=== PATIENT | male | born 1970 | race American Indian/Alaskan Native ===

== ENCOUNTER 2017-09-29 08:32 | Emergency (ER) | payer SELFPAY ==
[2017-09-29 08:46] VITALS: BP 125/73
[2017-09-29] MEDS ORDERED: MOTRIN PO ONE (09:02)
--- NOTE | 2017-09-29 09:59 | Emergency Department Report ---
ED Lower Extremity HPI - General Chief Complaint: Extremity Injury, Lower Stated Complaint: LEFT KNEE SWOLLEN Time Seen by Provider: 09/29/17 08:57 Source: patient Mode of arrival: Ambulatory Limitations: No Limitations - History of Present Illness Initial Comments: This is a 47-year-old male nontoxic, well nourished in appearance, no acute signs of distress presents to the ED with c/o of left knee pain 3 days. Patient stated had a total knee replacement in 1997. Patient denies any other trauma. Patient denies any numbness, tingling, fever, chills, nausea, vomiting , chest pain, shortness of breath, headache, stiff neck. Patient denies any joint swelling or joint redness. Patient denies decreased range of motion. Patient stated has decreased gait due to pain. Patient denies any allergies or significant past medical history. MD Complaint: knee injury -: days(s) (3) Injury: Knee: Left Severity: mild Severity scale (0 -10): 8 Improves With: immobilization Worsens With: movement Associated Symptoms: swelling, ambulatory. denies: snap/pop sensation, numbness , tingling, unable to bear weight, able to partially bear weight - Related Data Previous Rx's Medication Instructions Recorded Last Taken Type Amoxicillin/K Clav Tab [Augmentin 1 tab PO Q12HR #10 tab 05/13/15 Unknown Rx 875 mg] Ibuprofen [Motrin 800 MG tab] 800 mg PO Q8HR PRN #30 tablet 05/13/15 Unknown Rx Cephalexin [Keflex] 500 mg PO Q6HR #40 capsule 08/25/15 Unknown Rx Triamcinolone 0.1% [Kenalog 0.1% 1 applic TP BID #1 tube 08/25/15 Unknown Rx CREAM] Clindamycin [Clindamycin CAP] 300 mg PO Q8H #21 cap 09/29/17 Unknown Rx Ibuprofen [Motrin] 600 mg PO Q8H PRN #30 tablet 09/29/17 Unknown Rx Allergies Allergy/AdvReac Type Severity Reaction Status Date / Time No Known Allergies Allergy Verified 05/13/15 05:51 ED Review of Systems ROS: Stated complaint: LEFT KNEE SWOLLEN Other details as noted in HPI Constitutional: denies: chills, fever Eyes: denies: eye pain, eye discharge, vision change ENT: denies: ear pain, throat pain Respiratory: denies: cough, shortness of breath, wheezing Cardiovascular: denies: chest pain, palpitations Endocrine: no symptoms reported Gastrointestinal: denies: abdominal pain, nausea, diarrhea Genitourinary: denies: urgency, dysuria Musculoskeletal: arthralgia. denies: back pain, joint swelling Skin: denies: rash, lesions Neurological: denies: headache, weakness, paresthesias Psychiatric: denies: anxiety, depression Hematological/Lymphatic: denies: easy bleeding, easy bruising ED Past Medical Hx - Past Medical History Previous Medical History?: No - Surgical History Past Surgical History?: Yes Additional Surgical History: left knee reconstruction - Social History Smoking Status: Never Smoker Substance Use Type: Non Opiate Pain - Medications Home Medications: Home Medications Medication Instructions Recorded Confirmed Last Taken Type Amoxicillin/K Clav Tab [Augmentin 1 tab PO Q12HR #10 tab 05/13/15 Unknown Rx 875 mg] Ibuprofen [Motrin 800 MG tab] 800 mg PO Q8HR PRN #30 tablet 05/13/15 Unknown Rx Cephalexin [Keflex] 500 mg PO Q6HR #40 capsule 08/25/15 Unknown Rx Triamcinolone 0.1% [Kenalog 0.1% 1 applic TP BID #1 tube 08/25/15 Unknown Rx CREAM] Clindamycin [Clindamycin CAP] 300 mg PO Q8H #21 cap 09/29/17 Unknown Rx Ibuprofen [Motrin] 600 mg PO Q8H PRN #30 tablet 09/29/17 Unknown Rx ED Physical Exam - General Limitations: No Limitations General appearance: alert, in no apparent distress - Head Head exam: Present: atraumatic, normocephalic - Eye Eye exam: Present: normal appearance Pupils: Present: normal accommodation - ENT ENT exam: Present: normal exam, mucous membranes moist - Neck Neck exam: Present: normal inspection, full ROM. Absent: tenderness, meningismus, lymphadenopathy - Respiratory Respiratory exam: Present: normal lung sounds bilaterally. Absent: respiratory distress - Cardiovascular Cardiovascular Exam: Present: regular rate, normal rhythm. Absent: systolic murmur, diastolic murmur, rubs, gallop - GI/Abdominal GI/Abdominal exam: Present: soft, normal bowel sounds - Rectal Rectal exam: Present: deferred - Extremities Exam Extremities exam: Present: normal inspection, full ROM, tenderness, normal capillary refill. Absent: joint swelling - Expanded Lower Extremity Exam Left Hip exam: Present: normal inspection, full ROM. Absent: tenderness, swelling Upper Leg exam: Present: normal inspection, full ROM. Absent: tenderness, swelling Knee exam: Present: normal inspection, full ROM, tenderness, swelling, full knee extension. Absent: abrasion, laceration, ecchymosis, deformity, crepidus, dislocation, erythema, effusion, pain w/ pronation/supination, posterior draw sign, pain/laxity with valgus, pain/laxity with varus Lower Leg exam: Present: normal inspection, full ROM. Absent: tenderness, swelling Ankle exam: Present: normal inspection, full ROM. Absent: tenderness, swelling Foot/Toe exam: Present: normal inspection, full ROM. Absent: tenderness, swelling Neuro vascular tendon exam: Present: no vascular compromise. Absent: pulse deficit, abnormal cap refill, motor deficit, sensory deficit, tendon deficit, extremity cold to touch, pallor, abnormal 2-point discrimination, decreased fine /light touch, foot drop, peroneal nerve deficit, significant pain with passive ROM of distal joint Gait: Positive: observed and normal - Back Exam Back exam: Present: normal inspection, full ROM - Neurological Exam Neurological exam: Present: alert, oriented X3, normal gait - Psychiatric Psychiatric exam: Present: normal affect, normal mood - Skin Skin exam: Present: warm, dry, intact, normal color. Absent: rash ED Course Vital Signs 09/29/17 08:43 Temperature 97.8 F Pulse Rate 71 Respiratory 18 Rate Blood Pressure 125/73 O2 Sat by Pulse 99 Oximetry - Reevaluation(s) Reevaluation #1: 09/29/17 10:01 Patient is speaking in full sentences with no signs of distress noted. ED Lower Extremity MDM - Medical Decision Making This is a 47-year-old female that presents with left knee strain. Patient is stable and was examined by me. I referred patient to an orthopedic doctor for further evaluation for possible MRI. X-ray has been obtained and dictated by the radiologist. Patient is notified of the x-ray report with noted by the patient. Patient does have normal gait with no tenderness and no joint swelling. No ecchymosis. no joint redness or swelling. Not warm to touch. No signs of cellulites present. Patient is requested to be treated with "antibiotics" even though there is no signs of cellulitits. Patient was educated on cellulitiis and joint infections but patient still requested to be treated empirically. Patient is discharge with clindamycin. Patient was instructed to RICE therapy. Patient received Motrin for pain. Patient is discharged with Motrin. At time of discharge, the patient does not seem toxic or ill in appearance. No acute signs of distress noted. Patient agrees to discharge treatment plan of care. No further questions noted by the patient. Critical care attestation.: If time is entered above; I have spent that time in minutes in the direct care of this critically ill patient, excluding procedure time. ED Disposition Clinical Impression: Strain of left knee Qualifiers: Encounter type: initial encounter Qualified Code(s): S86.912A - Strain of unspecified muscle(s) and tendon(s) at lower leg level, left leg, initial encounter Disposition: TO HOME OR SELFCARE Is pt being admited?: No Does the pt Need Aspirin: No Condition: Stable Instructions: Knee Pain (ED), RICE Therapy (ED) Additional Instructions: Follow-up with a orthopedic doctor in 3-5 days or if symptoms worsen and continue return to emergency room as soon as possible. Prescriptions: Clindamycin [Clindamycin CAP] 300 mg PO Q8H #21 cap Ibuprofen [Motrin] 600 mg PO Q8H PRN #30 tablet PRN Reason: Pain Referrals: PRIMARY CAREMD [Primary Care Provider] - 3-5 Days JOHN PAUL WATTS MD [Staff Physician] - 3-[address] [facility] [place] [Outside] - 3-5 Days [facility] [Outside] - 3-5 Days Forms: Work/School Release Form(ED)
--- NOTE | 2017-09-29 10:22 | XRay Report ---
LEFT KNEE, 3 views: History: Left knee pain. No comparison. There is normal bone mineralization. Previous ACL repair changes are suspected, correlate with history. A single screw transverses the distal femoral metaphysis. A single screw transverses the proximal tibial metaphysis. Mild osteoarthritic changes are identified in the medial and lateral compartments of the left knee. No evidence for fracture, bone lesion or large osteochondral defect. Small joint effusion is suspected on the lateral image. IMPRESSION: Surgical changes, correlate with history. Mild osteoarthritic changes. Small joint effusion.
== END 2017-09-29 10:33 | disposition home or self-care (01) ==
LOC: ED 08:32
DX: S86.912A Strain of unspecified muscle(s) and tendon(s) at lower leg level, left leg, initial encounter (principal); X58.XXXA Exposure to other specified factors, initial encounter; Y93.89 Activity, other specified; Y99.8 Other external cause status; Y92.89 Other specified places as the place of occurrence of the external cause

== ENCOUNTER 2017-11-17 08:39 | Emergency (ER) | payer SELFPAY ==
[2017-11-17 09:20] VITALS: BP 119/77
[2017-11-17] MEDS ORDERED: MOTRIN ONE (09:59)
[2017-11-17] MEDS ORDERED: MOTRIN PO ONE (10:04)
--- NOTE | 2017-11-17 10:04 | Emergency Department Report ---
ED Extremity Problem HPI - General Chief complaint: Extremity Injury, Lower Stated complaint: LEFT LEG SWOLLEN Time Seen by Provider: 11/17/17 09:50 Source: patient Mode of arrival: Ambulatory Limitations: No Limitations - History of Present Illness Initial comments: Mr. Gabriel is a pleasant healthy 47-year-old male presents with left lower extremity swelling. He was seen in our ER on previous encounter for left knee swelling. He's had reconstructive surgery on the left knee in the . Since previous ER encounter he has had worsening left lower leg pain. Involving his foot. No recent travel. Denies chest pain. No shortness of breath. He has mild redness without trauma. MD Complaint: extremity pain, extremity swelling -: Gradual, week(s) (1) Location: right, lower extremity History of Same: Yes -: Yes myalgia, No associated dyspnea, No associated chest pain Radiation: none Severity scale (0 -10): 5 Quality: aching Consistency: constant Worsens with: nothing Associated Symptoms: denies other symptoms - Related Data Previous Rx's Medication Instructions Recorded Last Taken Type Amoxicillin/K Clav Tab [Augmentin 1 tab PO Q12HR #10 tab 05/13/15 Unknown Rx 875 mg] Ibuprofen [Motrin 800 MG tab] 800 mg PO Q8HR PRN #30 tablet 05/13/15 Unknown Rx Triamcinolone 0.1% [Kenalog 0.1% 1 applic TP BID #1 tube 08/25/15 Unknown Rx CREAM] cephALEXin [Keflex] 500 mg PO Q6HR #40 capsule 08/25/15 Unknown Rx Clindamycin [Clindamycin CAP] 300 mg PO Q8H #21 cap 09/29/17 Unknown Rx Ibuprofen [Motrin] 600 mg PO Q8H PRN #30 tablet 09/29/17 Unknown Rx Naproxen [Naprosyn] 500 mg PO BID 14 Days #28 tablet 11/17/17 Unknown Rx Allergies Allergy/AdvReac Type Severity Reaction Status Date / Time No Known Allergies Allergy Verified 11/17/17 10:07 ED Review of Systems ROS: Stated complaint: LEFT LEG SWOLLEN Other details as noted in HPI Comment: All other systems reviewed and negative Constitutional: denies: diaphoresis, malaise Cardiovascular: denies: chest pain ED Past Medical Hx - Past Medical History Previous Medical History?: No - Surgical History Past Surgical History?: Yes Additional Surgical History: left knee reconstruction - Social History Smoking Status: Never Smoker Substance Use Type: None - Medications Home Medications: Home Medications Medication Instructions Recorded Confirmed Last Taken Type Amoxicillin/K Clav Tab [Augmentin 1 tab PO Q12HR #10 tab 05/13/15 Unknown Rx 875 mg] Ibuprofen [Motrin 800 MG tab] 800 mg PO Q8HR PRN #30 tablet 05/13/15 Unknown Rx Triamcinolone 0.1% [Kenalog 0.1% 1 applic TP BID #1 tube 08/25/15 Unknown Rx CREAM] cephALEXin [Keflex] 500 mg PO Q6HR #40 capsule 08/25/15 Unknown Rx Clindamycin [Clindamycin CAP] 300 mg PO Q8H #21 cap 09/29/17 Unknown Rx Ibuprofen [Motrin] 600 mg PO Q8H PRN #30 tablet 09/29/17 Unknown Rx Naproxen [Naprosyn] 500 mg PO BID 14 Days #28 tablet 11/17/17 Unknown Rx ED Physical Exam - General Limitations: No Limitations General appearance: alert, in no apparent distress - Head Head exam: Present: atraumatic, normocephalic - Eye Eye exam: Present: normal appearance - ENT ENT exam: Present: mucous membranes moist - Neck Neck exam: Present: normal inspection. Absent: tenderness, meningismus - Respiratory Respiratory exam: Present: normal lung sounds bilaterally. Absent: respiratory distress, wheezes, rales, rhonchi - Cardiovascular Cardiovascular Exam: Present: regular rate, normal rhythm, normal heart sounds. Absent: systolic murmur, diastolic murmur, rubs, gallop - GI/Abdominal GI/Abdominal exam: Present: soft, normal bowel sounds. Absent: distended, guarding - Rectal Rectal exam: Present: deferred - Extremities Exam Extremities exam: Present: other (L leg with nonpitting edema and faint patches of erythema no tenderness in the knee. Left knee with surgical scar) - Back Exam Back exam: Present: normal inspection - Neurological Exam Neurological exam: Present: alert, oriented X3, normal gait - Psychiatric Psychiatric exam: Present: normal affect, normal mood - Skin Skin exam: Present: warm, dry, intact, normal color. Absent: rash ED Course Vital Signs 11/17/17 11/17/17 09:17 10:05 Temperature 97.9 F Pulse Rate 76 Respiratory 18 15 Rate Blood Pressure 119/77 O2 Sat by Pulse 98 Oximetry ED Medical Decision Making - Medical Decision Making Mr. Gabriel presents with left leg swelling and mild pain. No evidence of DVT. No evidence of Cellulitis. I suspect Walker's cyst or dependent edema due to favoring the left lower extremity. Patient likely has meniscus injury. Described naproxen. Critical care attestation.: If time is entered above; I have spent that time in minutes in the direct care of this critically ill patient, excluding procedure time. ED Disposition Clinical Impression: Left leg swelling Disposition: DC- TO HOME OR SELFCARE Is pt being admited?: No Does the pt Need Aspirin: No Condition: Stable Instructions: Leg Edema (ED) Prescriptions: Naproxen [Naprosyn] 500 mg PO BID 14 Days #28 tablet Referrals: PRIMARY CARE, [Primary Care Provider] - 3-5 Days Time of Disposition: 13:21
== END 2017-11-17 13:31 | disposition home or self-care (01) ==
LOC: ED 08:39
DX: R22.42 Localized swelling, mass and lump, left lower limb (principal)
CPT/HCPCS: 99283

== ENCOUNTER 2018-06-26 09:26 | Emergency (ER) | payer BC ==
[2018-06-26 10:35] LABS: Basophils # (Auto) 0.1 K/mm3 (0.0-0.1); Basophils % (Auto) 1.1 % (0.0-1.8); Eosinophils # (Auto) 0.1 K/mm3 (0.0-0.4); Eosinophils % (Auto) 1.1 % (0.0-4.3); Hematocrit 47.2 % (35.5-45.6); Hemoglobin 15.8 gm/dl (11.8-15.2); Lymphocytes # (Auto) 1.7 K/mm3 (1.2-5.4); Lymphocytes % (Auto) 24.8 % (13.4-35.0); Mean Corpuscular HGB Conc 34 % (32-34); Mean Corpuscular Volume 82 fl (84-94); Monocytes # (Auto) 0.6 K/mm3 (0.0-0.8); Monocytes % (Auto) 9.1 % (0.0-7.3); Platelet Count 290 K/mm3 (140-440); Red Blood Count 5.74 M/mm3 (3.65-5.03); Red Cell Distribution Width 15.4 % (13.2-15.2)
[2018-06-26 10:52] LABS: Alanine Aminotransferase 15 units/L (7-56); BUN/Creatinine Ratio 7; Blood Urea Nitrogen 7 mg/dL (9-20); Calcium 8.7 mg/dL (8.4-10.2); Hemolysis Index 9
[2018-06-26 10:55] LABS: Bilirubin,Urine NEG (Negative); Blood,Urine NEG (Negative); Color,Urine Yellow (Yellow); Protein,Urine <15 mg/dL mg/dL (Negative)
--- NOTE | 2018-06-26 13:54 | Cat Scan Report ---
PROCEDURE: CT ABDOMEN PELVIS W CON TECHNIQUE: Computerized axial tomography of the abdomen and pelvis was performed after the IV injecti on of iodinated nonionic contrast. Coronal and sagittal reconstructed imaging provided. CT DOSE LENGTH PRODUCT: 2366.8 mGy-cm. HISTORY: LLQ pain with diarrhea COMPARISONS: None currently available. FINDINGS: Abdomen: Lung bases and images of the heart are grossly unremarkable. Liver: Decreased heterogeneous attenuation may represent hepatocellular disease, fatty infiltration, or cirrhosis. No abnormal enhancement 3.5 mm low-density lesion in the right liver on series 2, image 26. 5.7 mm low-density lesion on image 47. Gallbladder, stomach, spleen, pancreas, and adrenals are unremarkable. Kidneys: Symmetrical cortical enhancement. No hydronephrosis. In the left kidney, subcentimeter hypod ensity is too small to accurately characterize but statistically probably represents a cyst. No aneurysm. No dissection. No significant atherosclerotic disease. IVC is unremarkable. There is no periaortic or retroperitoneal adenopathy or mass. Sections of the descending colon are collapsed which limits evaluation for wall thickening. Mild wall thickening of the distal half the descending colon is suspected. No significant stranding. Mild wall thickening of the sigmoid colon and rectum also suspected. Mild to moderate stool in the remainder o f the colon without air-fluid levels, wall thickening, or stranding. Terminal ileum is unremarkable. Appendix is normal. Small bowel loops are unremarkable. No obstructive pattern. No air-fluid levels. No free air. No free fluid. Mesentery is unremarkable. Pelvis: Prominent heterogeneous prostate. Bladder: Unremarkable. There is no pelvic mass or adenopathy. Inguinal regions are unremarkable. Bones: No suspicious osseous lesions on this limited examination of the skeleton. Metastatic disease better evaluated with bone scan. IMPRESSION: * Suspect mild colitis or enterocolitis of the left colon from the distal half the descending colon down to the rectum. No perforation or abscess. * Fatty liver. * Nonspecific subcentimeter right hepatic lesions. Hepatic lesions are nonspecific. Differential thuan gnosis includes cysts, hemangiomas, pseudotumors associated with fatty infiltration and also benign a nd malignant tumors. Cysts and hemangiomas favored. * Probable subcentimeter left renal cyst. This document is electronically signed by Artem Lester MD., June 26 2018 01:52:06 PM ET
--- NOTE | 2018-06-26 14:13 | Emergency Department Report ---
Vomiting/Diarrhea - HPI Chief Complaint: Abdominal Pain Stated Complaint: LOWER STOMACH PAIN Time Seen by Provider: 06/26/18 10:11 Duration: 3 Days Severity: moderate Nausea/Vomiting Severity: None Diarrhea Severity: Moderate Pain Location: LLQ Pain Severity: Mild Symptoms: Yes Watery Diarrhea, Yes Able to Tolerate Fluids, No Bloody diarrhea, No Fever, No Recent Unusual Foods, No Recent Untreated Water, No Recent use of Antibiotics, No Family w/ Similar Symptoms, No Contacts w/ Similar Symptoms, No Rash, No Hematuria, No Recent URI Symptoms ED Review of Systems ROS: Stated complaint: LOWER STOMACH PAIN Other details as noted in HPI Comment: All other systems reviewed and negative ED Past Medical Hx - Past Medical History Previous Medical History?: No - Surgical History Additional Surgical History: left knee reconstruction, hernia - Social History Smoking Status: Never Smoker Substance Use Type: None - Medications Home Medications: Home Medications Medication Instructions Recorded Confirmed Last Taken Type Amoxicillin/K Clav Tab [Augmentin 1 tab PO Q12HR #10 tab 05/13/15 Unknown Rx 875 mg] Ibuprofen [Motrin 800 MG tab] 800 mg PO Q8HR PRN #30 tablet 05/13/15 Unknown Rx Triamcinolone 0.1% [Kenalog 0.1% 1 applic TP BID #1 tube 08/25/15 Unknown Rx CREAM] cephALEXin [Keflex] 500 mg PO Q6HR #40 capsule 08/25/15 Unknown Rx Clindamycin [Clindamycin CAP] 300 mg PO Q8H #21 cap 09/29/17 Unknown Rx Ibuprofen [Motrin] 600 mg PO Q8H PRN #30 tablet 09/29/17 Unknown Rx Naproxen [Naprosyn] 500 mg PO BID 14 Days #28 tablet 11/17/17 Unknown Rx Ciprofloxacin HCl [Cipro] 500 mg PO BID #14 tablet 06/26/18 Unknown Rx Dicyclomine [Bentyl] 20 mg PO QID #10 tablet 06/26/18 Unknown Rx metroNIDAZOLE [Flagyl] 500 mg PO Q12HR #14 tab 06/26/18 Unknown Rx traMADol [Ultram] 50 mg PO Q6HR PRN #12 tablet 06/26/18 Unknown Rx Vomiting Diarrhea Exam - Exam General: Vital signs noted. No distress. Alert and acting appropriately. HEENT: Yes Moist Mucous Membranes, No Pharyngeal Erythema, No Pharyngeal Exudates, No Rhinorrhea, No Conjuctival Injection, No Frontal Tenderness, No Maxillary Tenderness Neck: No Adenopathy, No Rigidity Lungs: Yes Clear Lung Sounds, Yes Good Air Exchange, No Wheezes, No Stridor, No Cough, No Nasal Flaring, No Retractions, No Use of Accessory Muscles Heart exam: Regular: Yes, Murmur: No, Tachycardia: No Abdomen: Tenderness: Yes (LLQ, no rebound ), Peritoneal Signs: No, Distention: No, Hyperactive Bowel sounds: No Skin exam: Rash: No, Edema: No, Normal turgor: Yes Neurologic: Alert and oriented, no deficits. Musculoskeletal: Unremarkable. ED Course Vital Signs 06/26/18 09:29 Temperature 97.8 F Pulse Rate 87 Respiratory 16 Rate Blood Pressure 116/76 O2 Sat by Pulse 100 Oximetry ED Medical Decision Making - Lab Data Result diagrams: 06/26/18 10:20 06/26/18 10:20 Lab Results 06/26/18 06/26/18 06/26/18 Range/Units 10:20 10:20 10:47 WBC 6.7 (4.5-11.0) K/mm3 RBC 5.74 H (3.65-5.03) M/mm3 Hgb 15.8 H (11.8-15.2) gm/dl Hct 47.2 H (35.5-45.6) % MCV 82 L (84-94) fl MCH 28 (28-32) pg MCHC 34 (32-34) % RDW 15.4 H (13.2-15.2) % Plt Count 290 (140-440) K/mm3 Lymph % (Auto) 24.8 (13.4-35.0) % Trigg % (Auto) 9.1 H (0.0-7.3) % Eos % (Auto) 1.1 (0.0-4.3) % Baso % (Auto) 1.1 (0.0-1.8) % Lymph # 1.7 (1.2-5.4) K/mm3 Trigg # 0.6 (0.0-0.8) K/mm3 Eos # 0.1 (0.0-0.4) K/mm3 Baso # 0.1 (0.0-0.1) K/mm3 Seg Neutrophils % 63.9 (40.0-70.0) % Seg Neutrophils # 4.3 (1.8-7.7) K/mm3 Sodium 140 (137-145) mmol/L Potassium 4.2 (3.6-5.0) mmol/L Chloride 101.0 (98-107) mmol/L Carbon Dioxide 29 (22-30) mmol/L Anion Gap 14 mmol/L BUN 7 L (9-20) mg/dL Creatinine 1.0 (0.8-1.5) mg/dL Estimated GFR > 60 ml/min BUN/Creatinine Ratio 7 % Glucose 100 (75-100) mg/dL Calcium 8.7 (8.4-10.2) mg/dL Total Bilirubin 0.60 (0.1-1.2) mg/dL AST 16 (5-40) units/L ALT 15 (7-56) units/L Alkaline Phosphatase 44 (35-129) units/L Total Protein 6.8 (6.3-8.2) g/dL Albumin 4.0 (3.9-5) g/dL Albumin/Globulin Ratio 1.4 % Urine Color Yellow (Yellow) Urine Turbidity Clear (Clear) Urine pH 5.0 (5.0-7.0) Ur Specific [place] 1.024 (1.003-1.030) Urine Protein <15 mg/dl (Negative) mg/dL Urine Glucose (UA) Neg (Negative) mg/dL Urine Ketones Neg (Negative) mg/dL Urine Blood Neg (Negative) Urine Nitrite Neg (Negative) Urine Bilirubin Neg (Negative) Urine Urobilinogen 2.0 (<2.0) mg/dL Ur Leukocyte Esterase Neg (Negative) Urine WBC (Auto) 1.0 (0.0-6.0) /HPF Urine RBC (Auto) 2.0 (0.0-6.0) /HPF - Radiology Data [facility] [address] [place] [address] Cat Scan Report Signed Patient: KEEGAN SÁNCHEZ MR#: [id number] 5 : 1970 Acct:[id number] Age/Sex: 48 / M ADM Date: 06/26/18 Loc: ED Attending Dr: Ordering Physician: ISABELLA WALTER MD Date of Service: 06/26/18 Procedure(s): CT abdomen pelvis w con Accession Number(s): [id number] cc: ISABELLA WALTER MD PROCEDURE: CT ABDOMEN PELVIS W CON TECHNIQUE: Computerized axial tomography of the abdomen and pelvis was performed after the IV injection of iodinated nonionic contrast. Coronal and sagittal reconstructed imaging provided. CT DOSE LENGTH PRODUCT: 2366.8 mGy-cm. HISTORY: LLQ pain with diarrhea COMPARISONS: None currently available. FINDINGS: Abdomen: Lung bases and images of the heart are grossly unremarkable. Liver: Decreased heterogeneous attenuation may represent hepatocellular disease, fatty infiltration, or cirrhosis. No abnormal enhancement 3.5 mm low-density lesion in the right liver on series 2, image 26. 5.7 mm low-density lesion on image 47. Gallbladder, stomach, spleen, pancreas, and adrenals are unremarkable. Kidneys: Symmetrical cortical enhancement. No hydronephrosis. In the left kidney, subcentimeter hypodensity is too small to accurately characterize but statistically probably represents a cyst. No aneurysm. No dissection. No significant atherosclerotic disease. IVC is unremarkable. There is no periaortic or retroperitoneal adenopathy or mass. Sections of the descending colon are collapsed which limits evaluation for wall thickening. Mild wall thickening of the distal half the descending colon is suspected. No significant stranding. Mild wall thickening of the sigmoid colon and rectum also suspected. Mild to moderate stool in the remainder of the colon without air-fluid levels, wall thickening, or stranding. Terminal ileum is unremarkable. Appendix is normal. Small bowel loops are unremarkable. No obstructive pattern. No air-fluid levels. No free air. No free fluid. Mesentery is unremarkable. Pelvis: Prominent heterogeneous prostate. Bladder: Unremarkable. There is no pelvic mass or adenopathy. Inguinal regions are unremarkable. Bones: No suspicious osseous lesions on this limited examination of the skeleton. Metastatic disease better evaluated with bone scan. IMPRESSION: * Suspect mild colitis or enterocolitis of the left colon from the distal half the descending colon down to the rectum. No perforation or abscess. * Fatty liver. * Nonspecific subcentimeter right hepatic lesions. Hepatic lesions are nonspecific. Differential diagnosis includes cysts, hemangiomas, pseudotumors associated with fatty infiltration and also lynne ign and malignant tumors. Cysts and hemangiomas favored. * Probable subcentimeter left renal cyst. This document is electronically signed by Artem Marinelli MD., June 26 2018 01:52:06 PM ET Transcribed By: TYM Dictated By: ARTEM MARINELLI MD Electronically Authenticated By: ARTEM MARINELLI MD Signed Date/Time: 06/26/18 1354 DD/ 1328 TD/TT: 06/26/18 1328 - Medical Decision Making Pt with a mild colitis. Pain was controlled. Patient is a good candidate for outpatient therapy. Patient started on Cipro and Flagyl be discharged home. Critical care attestation.: If time is entered above; I have spent that time in minutes in the direct care of this critically ill patient, excluding procedure time. ED Disposition Clinical Impression: Colitis Disposition: DC-01 TO HOME OR SELFCARE Is pt being admited?: No Does the pt Need Aspirin: No Condition: Stable Instructions: Infectious Colitis (ED) Referrals: GRISEL PATINO MD [Staff Physician] - 3-5 Days Time of Disposition: 14:12
[2018-06-26 14:30] VITALS: BP 123/78
== END 2018-06-26 14:16 | disposition home or self-care (01) ==
LOC: ED 09:26
DX: K52.9 Noninfective gastroenteritis and colitis, unspecified (principal); Z79.899 Other long term (current) drug therapy
CPT/HCPCS: 36415; 74177; 80053; 81001; 85025; 99284; Q9967

== ENCOUNTER 2018-09-01 17:13 | Emergency (ER) | payer BC, OTHER ==
--- NOTE | 2018-09-01 17:44 | Emergency Department Report ---
Chief Complaint: Extremity Injury, Lower Stated Complaint: LT KNEE PAIN Time Seen by Provider: 09/01/18 17:42 - HPI History of Present Illness: This is a 48 y.o. male with left knee pain for 4 days. Patient states he injured knee 1997. He was working out and felt a pop. - Exam Vital Signs: Vital Signs 09/01/18 17:42 Temperature 97.8 F Pulse Rate 74 Respiratory 18 Rate Blood Pressure 130/51 O2 Sat by Pulse 97 Oximetry MSE screening note: Focused history and physical exam performed. Due to findings the following was ordered: This initial assessment/diagnostic orders/clinical plan/treatment(s) is/are subject to change based on patient's health status, clinical progression and re- assessment by fellow clinical providers in the ED. Further treatment and workup at subsequent clinical providers discretion. Patient/guardians urged not to elope from the ED as their condition may be serious if not clinically assessed and managed. Initial orders include: XR left knee. ED Disposition for MSE Condition: Stable
--- NOTE | 2018-09-01 18:51 | XRay Report ---
PROCEDURE: XR KNEE 3V LT TECHNIQUE: AP, sunrise, and lateral portable views of the left knee HISTORY: Left knee pain and swelling anterior COMPARISONS: X-ray left knee 09/29/2017 . FINDINGS: Transverse orthopedic screws are noted in the distal femur and proximal tibia, unchanged. No acute fracture or dislocation is seen. The soft tissues are unremarkable with no evidence for supr apatellar joint effusion. Joint spaces demonstrate mild narrowing of the medial joint compartment. The bony mineralization is n ormal. IMPRESSION: No acute abnormality of the left knee. This document is electronically signed by Radhika Shields MD., September 01 2018 06:48:47 PM ET
[2018-09-01 21:12] VITALS: BP 118/78
[2018-09-01] MEDS ORDERED: IBUPROFEN PO ONE (21:36)
--- NOTE | 2018-09-01 21:41 | Emergency Department Report ---
ED Lower Extremity HPI - General Chief Complaint: Extremity Injury, Lower Stated Complaint: LT KNEE PAIN Time Seen by Provider: 09/01/18 17:42 Source: patient Mode of arrival: Ambulatory Limitations: No Limitations - History of Present Illness Initial Comments: Mr. Gabriel is a very pleasant 48-year-old male whose has swelling in medial left knee pain for the past 3-4 days. No trauma. +anterior cruciate ligament reconstructive surgery 20 years ago after a basketball injury. Recently he has started a new regimen on the stationary bicycle for exercise. MD Complaint: knee injury -: Gradual, days(s) (4) Injury: Knee: Left Severity: mild, moderate Improves With: nothing Worsens With: movement Associated Symptoms: swelling. denies: snap/pop sensation - Related Data Previous Rx's Medication Instructions Recorded Last Taken Type Amoxicillin/K Clav Tab [Augmentin 1 tab PO Q12HR #10 tab 05/13/15 Unknown Rx 875 mg] Ibuprofen [Motrin 800 MG tab] 800 mg PO Q8HR PRN #30 tablet 05/13/15 Unknown Rx Triamcinolone 0.1% [Kenalog 0.1% 1 applic TP BID #1 tube 08/25/15 Unknown Rx CREAM] cephALEXin [Keflex] 500 mg PO Q6HR #40 capsule 08/25/15 Unknown Rx Clindamycin [Clindamycin CAP] 300 mg PO Q8H #21 cap 09/29/17 Unknown Rx Ibuprofen [Motrin] 600 mg PO Q8H PRN #30 tablet 09/29/17 Unknown Rx Naproxen [Naprosyn] 500 mg PO BID 14 Days #28 tablet 11/17/17 Unknown Rx Ciprofloxacin HCl [Cipro] 500 mg PO BID #14 tablet 06/26/18 Unknown Rx Dicyclomine [Bentyl] 20 mg PO QID #10 tablet 06/26/18 Unknown Rx metroNIDAZOLE [Flagyl] 500 mg PO Q12HR #14 tab 06/26/18 Unknown Rx traMADol [Ultram] 50 mg PO Q6HR PRN #12 tablet 06/26/18 Unknown Rx Ibuprofen [Motrin 800 MG tab] 800 mg PO TID 5 Days #15 tablet 09/01/18 Unknown Rx Allergies Allergy/AdvReac Type Severity Reaction Status Date / Time No Known Allergies Allergy Verified 09/01/18 17:14 ED Review of Systems ROS: Stated complaint: LT KNEE PAIN Other details as noted in HPI Constitutional: denies: fever, malaise Musculoskeletal: joint swelling, arthralgia Neurological: denies: numbness, paresthesias, confusion ED Past Medical Hx - Past Medical History Previous Medical History?: No - Surgical History Additional Surgical History: left knee reconstruction, hernia - Social History Smoking Status: Never Smoker Substance Use Type: None - Medications Home Medications: Home Medications Medication Instructions Recorded Confirmed Last Taken Type Amoxicillin/K Clav Tab [Augmentin 1 tab PO Q12HR #10 tab 05/13/15 Unknown Rx 875 mg] Ibuprofen [Motrin 800 MG tab] 800 mg PO Q8HR PRN #30 tablet 05/13/15 Unknown Rx Triamcinolone 0.1% [Kenalog 0.1% 1 applic TP BID #1 tube 08/25/15 Unknown Rx CREAM] cephALEXin [Keflex] 500 mg PO Q6HR #40 capsule 08/25/15 Unknown Rx Clindamycin [Clindamycin CAP] 300 mg PO Q8H #21 cap 09/29/17 Unknown Rx Ibuprofen [Motrin] 600 mg PO Q8H PRN #30 tablet 09/29/17 Unknown Rx Naproxen [Naprosyn] 500 mg PO BID 14 Days #28 tablet 11/17/17 Unknown Rx Ciprofloxacin HCl [Cipro] 500 mg PO BID #14 tablet 06/26/18 Unknown Rx Dicyclomine [Bentyl] 20 mg PO QID #10 tablet 06/26/18 Unknown Rx metroNIDAZOLE [Flagyl] 500 mg PO Q12HR #14 tab 06/26/18 Unknown Rx traMADol [Ultram] 50 mg PO Q6HR PRN #12 tablet 06/26/18 Unknown Rx Ibuprofen [Motrin 800 MG tab] 800 mg PO TID 5 Days #15 tablet 09/01/18 Unknown Rx ED Physical Exam - General Limitations: No Limitations General appearance: alert, in no apparent distress - Head Head exam: Present: atraumatic, normocephalic - Respiratory Respiratory exam: Present: normal lung sounds bilaterally. Absent: respiratory distress, wheezes, rales, rhonchi - Expanded Lower Extremity Exam Left Knee exam: Present: normal inspection (large vertical surgical scar central left knee), full ROM, tenderness. Absent: swelling, abrasion, laceration, ecchymosis, deformity, crepidus, dislocation, erythema, effusion ED Course Vital Signs 06/04/19 06/04/19 17:42 21:11 Temperature 97.8 F 97.8 F Pulse Rate 74 72 Respiratory 18 16 Rate Blood Pressure 130/51 Blood Pressure 118/78 [Left] O2 Sat by Pulse 97 98 Oximetry ED Lower Extremity MDM - Radiology Data Radiology results: report reviewed Left knee radiographs reported normal with negative findings according to radiology report - Medical Decision Making Mr. his symptoms with medial knee pain status post anterior cruciate ligament reconstruction 3 years ago. Suspect medial meniscus injury. Strongly recommended orthopedic surgeon. Left Nasir wrap was applied to the affected ext remity under my supervision. After application the extremity was neurovascularly intact with acceptable alignment. prescribed ibuprofen 800 mg tablets. Critical care attestation.: If time is entered above; I have spent that time in minutes in the direct care of this critically ill patient, excluding procedure time. ED Disposition Clinical Impression: Left knee pain, Derangement of medial meniscus due to injury Disposition: DC-01 TO HOME OR SELFCARE Is pt being admited?: No Does the pt Need Aspirin: No Condition: Stable Instructions: Knee Pain (ED), Knee Effusion (ED) Prescriptions: Ibuprofen [Motrin 800 MG tab] 800 mg PO TID 5 Days #15 tablet Referrals: JOHN PAUL WATTS MD [Staff Physician] - 3-5 Days
== END 2018-09-01 21:55 | disposition home or self-care (01) ==
LOC: ED 17:13
DX: M23.304 Other meniscus derangements, unspecified medial meniscus, left knee (principal); M25.562 Pain in left knee

== ENCOUNTER 2018-12-01 09:37 | Emergency (ER) | payer SELFPAY ==
[2018-12-01] MEDS ORDERED: TORADOL IM ONE (10:00)
--- NOTE | 2018-12-01 10:24 | Emergency Department Report ---
ED Extremity Problem HPI - General Chief complaint: Extremity Problem,Nontraumatic Stated complaint: RT POST LEG PAIN Time Seen by Provider: 12/01/18 09:55 Source: patient Mode of arrival: Ambulatory Limitations: No Limitations - History of Present Illness Initial comments: Patient is a 48-year-old male who presents to emergency room with complaints of right calf pain and swelling that began 2 days ago. He states it feels like a cramping/spasming feeling. 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 Denies any fall or injury. Denies ever having a pain like this before. Patient denies any recent travel, recent surgery, recent immobilization. Denies any personal or family history of DVT/PE. pt denies any CP, SOB, hemoptysis. He denies any past medical history or allergies to medications. pt is a nonsmoker. - Related Data Previous Rx's Medication Instructions Recorded Last Taken Type Amoxicillin/K Clav Tab [Augmentin 1 tab PO Q12HR #10 tab 05/13/15 Unknown Rx 875 mg] Ibuprofen [Motrin 800 MG tab] 800 mg PO Q8HR PRN #30 tablet 05/13/15 Unknown Rx Triamcinolone 0.1% [Kenalog 0.1% 1 applic TP BID #1 tube 08/25/15 Unknown Rx CREAM] cephALEXin [Keflex] 500 mg PO Q6HR #40 capsule 08/25/15 Unknown Rx Clindamycin [Clindamycin CAP] 300 mg PO Q8H #21 cap 09/29/17 Unknown Rx Ibuprofen [Motrin] 600 mg PO Q8H PRN #30 tablet 09/29/17 Unknown Rx Naproxen [Naprosyn] 500 mg PO BID 14 Days #28 tablet 11/17/17 Unknown Rx Ciprofloxacin HCl [Cipro] 500 mg PO BID #14 tablet 06/26/18 Unknown Rx Dicyclomine [Bentyl] 20 mg PO QID #10 tablet 06/26/18 Unknown Rx metroNIDAZOLE [Flagyl] 500 mg PO Q12HR #14 tab 06/26/18 Unknown Rx traMADol [Ultram] 50 mg PO Q6HR PRN #12 tablet 06/26/18 Unknown Rx Ibuprofen [Motrin 800 MG tab] 800 mg PO TID 5 Days #15 tablet 09/01/18 Unknown Rx Apixaban [Eliquis] 5 mg PO BID #62 tablet 12/01/18 Unknown Rx Allergies Allergy/AdvReac Type Severity Reaction Status Date / Time No Known Allergies Allergy Verified 09/01/18 17:14 ED Review of Systems ROS: Stated complaint: RT POST LEG PAIN Other details as noted in HPI Comment: All other systems reviewed and negative ED Past Medical Hx - Past Medical History Previous Medical History?: No - Surgical History Past Surgical History?: Yes Additional Surgical History: left knee reconstruction, hernia - Social History Smoking Status: Never Smoker Substance Use Type: None - Medications Home Medications: Home Medications Medication Instructions Recorded Confirmed Last Taken Type Amoxicillin/K Clav Tab [Augmentin 1 tab PO Q12HR #10 tab 05/13/15 Unknown Rx 875 mg] Ibuprofen [Motrin 800 MG tab] 800 mg PO Q8HR PRN #30 tablet 05/13/15 Unknown Rx Triamcinolone 0.1% [Kenalog 0.1% 1 applic TP BID #1 tube 08/25/15 Unknown Rx CREAM] cephALEXin [Keflex] 500 mg PO Q6HR #40 capsule 08/25/15 Unknown Rx Clindamycin [Clindamycin CAP] 300 mg PO Q8H #21 cap 09/29/17 Unknown Rx Ibuprofen [Motrin] 600 mg PO Q8H PRN #30 tablet 09/29/17 Unknown Rx Naproxen [Naprosyn] 500 mg PO BID 14 Days #28 tablet 11/17/17 Unknown Rx Ciprofloxacin HCl [Cipro] 500 mg PO BID #14 tablet 06/26/18 Unknown Rx Dicyclomine [Bentyl] 20 mg PO QID #10 tablet 06/26/18 Unknown Rx metroNIDAZOLE [Flagyl] 500 mg PO Q12HR #14 tab 06/26/18 Unknown Rx traMADol [Ultram] 50 mg PO Q6HR PRN #12 tablet 06/26/18 Unknown Rx Ibuprofen [Motrin 800 MG tab] 800 mg PO TID 5 Days #15 tablet 09/01/18 Unknown Rx Apixaban [Eliquis] 5 mg PO BID #62 tablet 12/01/18 Unknown Rx ED Physical Exam - General Limitations: No Limitations General appearance: alert, in no apparent distress - Head Head exam: Present: atraumatic, normocephalic - Eye Eye exam: Present: normal appearance - ENT ENT exam: Present: mucous membranes moist - Extremities Exam Extremities exam: Present: other (edema and TTP to the right calf, calf feels flexed, no edema of the rest of the leg, no erythema, no increased warmth, no signs of infection, 2+ pt and dp pulse, sensation intact, brisk cap refill) - Neurological Exam Neurological exam: Present: alert, oriented X3 - Psychiatric Psychiatric exam: Present: normal affect, normal mood - Skin Skin exam: Present: warm, dry, intact ED Course Vital Signs 12/01/18 12/01/18 12/01/18 09:41 10:37 11:01 Temperature 98.1 F Pulse Rate 83 79 Respiratory 16 17 15 Rate Blood Pressure 133/81 111/75 O2 Sat by Pulse 95 98 Oximetry ED Medical Decision Making - Lab Data Result diagrams: 12/01/18 10:35 12/01/18 10:35 Lab Results 12/01/18 12/01/18 12/01/18 Range/Units 10:35 10:35 10:35 WBC 7.2 (4.5-11.0) K/mm3 RBC 5.49 H (3.65-5.03) M/mm3 Hgb 15.2 (11.8-15.2) gm/dl Hct 45.0 (35.5-45.6) % MCV 82 L (84-94) fl MCH 28 (28-32) pg MCHC 34 (32-34) % RDW 14.6 (13.2-15.2) % Plt Count 248 (140-440) K/mm3 Lymph % (Auto) 19.5 (13.4-35.0) % [place] % (Auto) 10.2 H (0.0-7.3) % Eos % (Auto) 0.4 (0.0-4.3) % Baso % (Auto) 1.0 (0.0-1.8) % Lymph # 1.4 (1.2-5.4) K/mm3 [place] # 0.7 (0.0-0.8) K/mm3 Eos # 0.0 (0.0-0.4) K/mm3 Baso # 0.1 (0.0-0.1) K/mm3 Seg Neutrophils % 68.9 (40.0-70.0) % Seg Neutrophils # 4.9 (1.8-7.7) K/mm3 PT 12.9 (12.2-14.9) Sec. INR 1.00 (0.87-1.13) APTT 24.6 (24.2-36.6) Sec. Sodium 138 (137-145) mmol/L Potassium 4.1 (3.6-5.0) mmol/L Chloride 99.7 (98-107) mmol/L Carbon Dioxide 27 (22-30) mmol/L Anion Gap 15 mmol/L BUN 7 L (9-20) mg/dL Creatinine 0.9 (0.8-1.5) mg/dL Estimated GFR > 60 ml/min BUN/Creatinine Ratio 8 % Glucose 117 H (75-100) mg/dL Calcium 9.1 (8.4-10.2) mg/dL - Radiology Data Radiology results: report reviewed DUPLEX DOPPLER LOWER EXTREMITY VEINS, RIGHT INDICATION: Right calf pain for 2 days. TECHNIQUE: Duplex doppler imaging was performed through the veins of the right lower extremity using venous compression and other maneuvers. COMPARISON: No relevant prior imaging study available. FINDINGS: Right Common femoral vein: Negative. Right Superficial femoral vein: Negative. Right Popliteal vein: Positive. Right Calf veins: Positive. Additional findings: None.. IMPRESSION: Positive for DVT in the right popliteal vein and calf veins. Signer Name: Benton Guevara Jr, MD Signed: 12/01/2018 10:41 AM Workstation Name: [id number] Transcribed By: TTR Dictated By: BENTON GUEVARA JR, MD Electronically Authenticated By: BENTON GUEVARA JR, MD Signed Date/Time: 12/01/18 1041 - Medical Decision Making Patient is a 48-year-old male who presents to emergency room with complaints of right calf pain and swelling that began 2 days ago. He states it feels like a cramping/spasming feeling. 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 Denies any fall or injury. Denies ever having a pain like this before. Patient denies any recent travel, recent surgery, recent immobilization. Denies any personal or family history of DVT/PE. pt denies any CP, SOB, hemoptysis. He denies any past medical history or allergies to medications. pt is a nonsmoker. vitals are normal. on exam: edema and TTP to the right calf, calf feels flexed, no edema of the rest of the leg, no erythema, no increased warmth, no signs of infection, 2+ pt and dp pulse, sensation intact, brisk cap refill. labs are stable. US RLE shows Positive for DVT in the right popliteal vein and calf veins. pt given 10 mg of eliquis while in the ED. given a prescription for a 30 day supply of eliquis. given a eliquis savings card. advised pt to please take medication as prescribed. advised to please follow up with a primary care doctor in the next 2-3 days. discussed if begin experiencing any bleeding please return to the emergency room immediately. return to the emergency room for any new or worsening symptoms. - Differential Diagnosis DVT, electrolyte disturbance, muscle cramps Critical care attestation.: If time is entered above; I have spent that time in minutes in the direct care of this critically ill patient, excluding procedure time. ED Disposition Clinical Impression: Right calf pain DVT (deep venous thrombosis) Qualifiers: DVT location: lower extremity Affected thrombotic vein of extremity: popliteal Chronicity: acute Laterality: right Qualified Code(s): I82.431 - Acute embolism and thrombosis of right popliteal vein Disposition: DC-01 TO HOME OR SELFCARE Is pt being admited?: No Does the pt Need Aspirin: No Condition: Stable Instructions: Deep Venous Thrombosis (ED) Additional Instructions: please take medication as prescribed. please follow up with a primary care doctor in the next 2-3 days. if begin experiencing any bleeding please return to the emergency room immediately. return to the emergency room for any new or worsening symptoms. Prescriptions: Apixaban [Eliquis] 5 mg PO BID #62 tablet Referrals: [facility] [Outside] - 2-3 Days [facility] [Outside] - 2-3 Days [facility] [Provider Group] - 2-3 Days Forms: Work/School Release Form(ED) Time of Disposition: 11:22 Print Language: ARMENIAN
--- NOTE | 2018-12-01 10:45 | Vascular Lab Report ---
DUPLEX DOPPLER LOWER EXTREMITY VEINS, RIGHT INDICATION: Right calf pain for 2 days. TECHNIQUE: Duplex doppler imaging was performed through the veins of the right lower extremity using venous compression and other maneuvers. COMPARISON: No relevant prior imaging study available. FINDINGS: Right Common femoral vein: Negative. Right Superficial femoral vein: Negative. Right Popliteal vein: Positive. Right Calf veins: Positive. Additional findings: None.. IMPRESSION: Positive for DVT in the right popliteal vein and calf veins. Signer Name: Benton Rice Jr, MD Signed: 12/01/2018 10:41 AM Workstation Name: [id number]
[2018-12-01 10:47] LABS: Basophils # (Auto) 0.1 K/mm3 (0.0-0.1); Eosinophils % (Auto) 0.4 % (0.0-4.3); Hemoglobin 15.2 gm/dl (11.8-15.2); Lymphocytes # (Auto) 1.4 K/mm3 (1.2-5.4); Lymphocytes % (Auto) 19.5 % (13.4-35.0); Mean Corpuscular HGB Conc 34 % (32-34); Mean Corpuscular Volume 82 fl (84-94); Monocytes # (Auto) 0.7 K/mm3 (0.0-0.8); Monocytes % (Auto) 10.2 % (0.0-7.3); Platelet Count 248 K/mm3 (140-440); Red Blood Count 5.49 M/mm3 (3.65-5.03); Red Cell Distribution Width 14.6 % (13.2-15.2)
[2018-12-01 11:02] VITALS: BP 111/75
[2018-12-01 11:03] LABS: Partial Thromboplastin Time 24.6 Sec. (24.2-36.6)
[2018-12-01 11:08] LABS: BUN/Creatinine Ratio 8; Blood Urea Nitrogen 7 mg/dL (9-20); Calcium 9.1 mg/dL (8.4-10.2); Hemolysis Index 5
[2018-12-01] MEDS ORDERED: ELIQUIS PO ONE (11:17)
== END 2018-12-01 11:40 | disposition home or self-care (01) ==
LOC: ED 09:37
DX: I82.431 Acute embolism and thrombosis of right popliteal vein (principal); Z98.890 Other specified postprocedural states; Z79.899 Other long term (current) drug therapy
CPT/HCPCS: 36415; 80048; 85025; 85610; 85730; 93971; 96372; 99284; J1885

== ENCOUNTER 2018-12-07 21:59 | Emergency (ER) | payer SELFPAY ==
[2018-12-08] MEDS ORDERED: LOVENOX SUB-Q ONE (02:54)
--- NOTE | 2018-12-08 03:19 | Emergency Department Report ---
HPI - General Chief Complaint: Extremity Injury, Lower Time Seen by Provider: 12/08/18 02:40 - HPI HPI: 48-year-old -[place] male presents to the emergency department with the complaint of some continued right leg pain and swelling with a history of a DVT. The patient was here about one week ago and was found to have DVTs to the right popliteal vein and the calf veins. He was placed on Eliquis and even given a card to give him a cheaper 30 day supply of the medication. He says that he went to the pharmacy and was told that he did not have the right card and otherwise the medication was too expensive and therefore he has not been taking it. He denies any chest pain, shortness of breath, back pain. The patient previously had been on a flight to [place] 3 weeks ago. ED Past Medical Hx - Past Medical History Previous Medical History?: No - Surgical History Past Surgical History?: Yes Additional Surgical History: left knee reconstruction, hernia - Social History Smoking Status: Never Smoker Substance Use Type: None - Medications Home Medications: Home Medications Medication Instructions Recorded Confirmed Last Taken Type Amoxicillin/K Clav Tab [Augmentin 1 tab PO Q12HR #10 tab 05/13/15 Unknown Rx 875 mg] Ibuprofen [Motrin 800 MG tab] 800 mg PO Q8HR PRN #30 tablet 05/13/15 Unknown Rx Triamcinolone 0.1% [Kenalog 0.1% 1 applic TP BID #1 tube 08/25/15 Unknown Rx CREAM] cephALEXin [Keflex] 500 mg PO Q6HR #40 capsule 08/25/15 Unknown Rx Clindamycin [Clindamycin CAP] 300 mg PO Q8H #21 cap 09/29/17 Unknown Rx Ibuprofen [Motrin] 600 mg PO Q8H PRN #30 tablet 09/29/17 Unknown Rx Naproxen [Naprosyn] 500 mg PO BID 14 Days #28 tablet 11/17/17 Unknown Rx Ciprofloxacin HCl [Cipro] 500 mg PO BID #14 tablet 06/26/18 Unknown Rx Dicyclomine [Bentyl] 20 mg PO QID #10 tablet 06/26/18 Unknown Rx metroNIDAZOLE [Flagyl] 500 mg PO Q12HR #14 tab 06/26/18 Unknown Rx traMADol [Ultram] 50 mg PO Q6HR PRN #12 tablet 03/29/19 Unknown Rx Ibuprofen [Motrin 800 MG tab] 800 mg PO TID 5 Days #15 tablet 09/01/18 Unknown Rx Apixaban [Eliquis] 5 mg PO BID #62 tablet 12/01/18 Unknown Rx Apixaban [Eliquis] 5 mg PO BID #74 tablet 12/08/18 Unknown Rx ED Review of Systems ROS: Stated complaint: POSS BLOOD CLOT Other details as noted in HPI Comment: All other systems reviewed and negative Constitutional: denies: chills, fever Eyes: denies: eye pain, vision change ENT: denies: ear pain, throat pain Respiratory: denies: cough, shortness of breath Cardiovascular: denies: chest pain, palpitations Gastrointestinal: denies: abdominal pain, vomiting Genitourinary: denies: dysuria, discharge Musculoskeletal: myalgia. denies: back pain Skin: denies: rash Neurological: denies: headache, numbness, paresthesias Physical Exam - Physical Exam Vital Signs: Vital Signs 12/08/18 01:50 Temperature 97.8 F Pulse Rate 58 L Respiratory 20 Rate Blood Pressure 109/67 Blood Pressure 109/67 [Left] O2 Sat by Pulse 99 Oximetry Physical Exam: GENERAL: The patient is well-developed well-nourished. HENT: Normocephalic. Atraumatic. Patient has moist mucous membranes. EYES: Extraocular motions are intact. NECK: Supple. Trachea is midline. CHEST/LUNGS: Clear to auscultation. There is no respiratory distress noted. HEART/CARDIOVASCULAR: Regular. There is no tachycardia. There is no murmur. ABDOMEN: Abdomen is soft, nontender. Patient has normal bowel sounds. There is no abdominal distention. SKIN: Skin is warm and dry. Mild right lower extremity nonpitting swelling compared to the left. NEURO: The patient is awake, alert, and oriented. The patient is cooperative. The patient has no focal neurologic deficits. Normal speech. MUSCULOSKELETAL: There is some mild right calf tenderness to palpation. There is no limitation range of motion. There is no evidence of acute injury. ED Course Vital Signs 12/08/18 01:50 Temperature 97.8 F Pulse Rate 58 L Respiratory 20 Rate Blood Pressure 109/67 Blood Pressure 109/67 [Left] O2 Sat by Pulse 99 Oximetry ED Medical Decision Making - Medical Decision Making This patient presents with the recent diagnosis of a right lower extremity DVT and some noncompliance with his anticoagulation secondary to some issues with the cost of the Eliquis and he says he has been unable to use the Eliquis card provided for a cheaper one month supply. He has some paperwork that can be filled out that he says will allow him to get the anticoagulation medication for cheaper. He does not feel that the right leg pain or swelling has increased from his visit one week ago. He denies any chest pain, back pain, shortness of breath. Vital signs stable including being afebrile. No tachycardia or hypoxia. The patient was given a dose of Lovenox here in the emergency department. We had a long discussion about the importance of the anticoagulations that he does not develop any further clots or develop a pulmonary embolism. We even discussed that he may want to choose to pay out of pocket for this medication so that he can be and remained therapeutic. He understands and agrees the plan. I filled out the appropriate paperwork that was necessary to try and get him the anticoagulation cheaply and he was given another prescription for the anticoagulation medication. We discussed also the fact that he may need Coumadin or warfarin if his finances dictate this, but he will need some close primary care follow-up for INR testing and titration. He was given some referrals for primary care physicians in clinics in the area. The patient will return to the emergency Department with any worsening of symptoms, development of chest pain, shortness of breath or back pain, or if any acute distress. - Differential Diagnosis DVT, cellulitis medication noncompliance Critical Care Time: No Critical care attestation.: If time is entered above; I have spent that time in minutes in the direct care of this critically ill patient, excluding procedure time. ED Disposition Clinical Impression: Right calf pain DVT (deep venous thrombosis) Qualifiers: DVT location: lower extremity Affected thrombotic vein of extremity: popliteal Chronicity: unspecified Laterality: right Qualified Code(s): I82.431 - Acute embolism and thrombosis of right popliteal vein Disposition: -01 TO HOME OR SELFCARE Is pt being admited?: No Condition: Stable Instructions: Deep Venous Thrombosis (ED) Additional Instructions: Please get the prescription filled for your anticoagulation. Return to the emergency department with any worsening of your leg pain or swelling, or development of chest pain or shortness of breath, or with any acute distress. You are being started on a blood thinner which makes you more prone to bleeding. Please take appropriate precautions. Prescriptions: Apixaban [Eliquis] 5 mg PO BID #74 tablet Referrals: KAMI LOERA MD [Staff Physician] - 2-3 Days [facility] [Outside] - 2-3 Days Forms: Work/School Release Form(ED) Time of Disposition: 03:49
[2018-12-08 04:24] VITALS: BP 108/65
== END 2018-12-08 04:20 | disposition home or self-care (01) ==
LOC: ED 21:59
DX: I82.431 Acute embolism and thrombosis of right popliteal vein (principal)
CPT/HCPCS: 96372; 99281; J1650

== ENCOUNTER 2019-03-03 05:16 | Emergency (ER) | payer SELFPAY ==
[2019-03-03 05:24] VITALS: BP 140/91
[2019-03-03 06:40] LABS: Bacteria,Urine 1+ /HPF (Negative); Bilirubin,Urine NEG (Negative); Blood,Urine MOD (Negative); Color,Urine Yellow (Yellow); Mucus,Urine FEW /HPF; Protein,Urine <15 mg/dL mg/dL (Negative)
[2019-03-03] MEDS ORDERED: SODIUM CHLORIDE 0.9% 1000 ML 1,000 ML IV ONE (06:57)
[2019-03-03] MEDS ORDERED: KETOROLAC 30 MG/1 ML INJ IV ONE (06:57)
[2019-03-03] MEDS ORDERED: ONDANSETRON 4 MG/2 ML INJ IV ONE ×2 (06:57→09:34)
[2019-03-03] MEDS ORDERED: SODIUM CHLORIDE 0.9% 1000 ML 1,000 ML ONE (07:01)
--- NOTE | 2019-03-03 08:09 | Emergency Department Report ---
ED Back Pain/Injury HPI - General Chief Complaint: Urogenital-Male Stated Complaint: LOWER BACK PAIN Time Seen by Provider: 03/03/19 07:50 Source: patient, family Mode of arrival: Ambulatory Limitations: No Limitations - History of Present Illness Initial Comments: She never complained of back pain and right testicular pain. He is also complaining of lower quadrant pain. MD Complaint: back pain Onset/Timin -: days(s) Similar Symptoms Previously: Yes Place: home Radiation: abdomen, flank Severity: mild Severity scale (0 -10): 4 Quality: sharp, stabbing Consistency: constant Improves With: none Worsens With: none Context: unknown Associated Symptoms: difficulty urinating, abdominal pain, other (dark urine). denies: confusion, weakness, chest pain, numbness, difficulty walking, cough, diaphoresis, incontinence, fever/chills, constipation, headaches, loss of appetite, nausea/vomiting, rash, seizure, shortness of breath, syncope Treatments Prior to Arrival: acetaminophen - Related Data Previous Rx's Medication Instructions Recorded Last Taken Type Amoxicillin/K Clav Tab [Augmentin 1 tab PO Q12HR #10 tab 05/13/15 Unknown Rx 875 mg] Ibuprofen [Motrin 800 MG tab] 800 mg PO Q8HR PRN #30 tablet 05/13/15 Unknown Rx Triamcinolone 0.1% [Kenalog 0.1% 1 applic TP BID #1 tube 08/25/15 Unknown Rx CREAM] cephALEXin [Keflex] 500 mg PO Q6HR #40 capsule 08/25/15 Unknown Rx Clindamycin [Clindamycin CAP] 300 mg PO Q8H #21 cap 09/29/17 Unknown Rx Ibuprofen [Motrin] 600 mg PO Q8H PRN #30 tablet 09/29/17 Unknown Rx Naproxen [Naprosyn] 500 mg PO BID 14 Days #28 tablet 11/17/17 Unknown Rx Ciprofloxacin HCl [Cipro] 500 mg PO BID #14 tablet 06/26/18 Unknown Rx Dicyclomine [Bentyl] 20 mg PO QID #10 tablet 06/26/18 Unknown Rx metroNIDAZOLE [Flagyl] 500 mg PO Q12HR #14 tab 06/26/18 Unknown Rx traMADoL [Ultram] 50 mg PO Q6HR PRN #12 tablet 06/26/18 Unknown Rx Ibuprofen [Motrin 800 MG tab] 800 mg PO TID 5 Days #15 tablet 09/01/18 Unknown Rx Apixaban [Eliquis] 5 mg PO BID #62 tablet 12/01/18 Unknown Rx Apixaban [Eliquis] 5 mg PO BID #74 tablet 12/08/18 Unknown Rx Ciprofloxacin HCl [Ciprofloxacin 500 mg PO Q12HR 14 Days #28 tab 03/03/19 Unknown Rx TAB] Ondansetron [Zofran ODT TAB] 8 mg PO Q8HR PRN #12 tab.rapdis 03/03/19 Unknown Rx traMADoL [Ultram 50 MG tab] 50 mg PO Q6HR PRN #12 tablet 03/03/19 Unknown Rx Allergies Allergy/AdvReac Type Severity Reaction Status Date / Time No Known Allergies Allergy Verified 09/01/18 17:14 ED Review of Systems ROS: Stated complaint: LOWER BACK PAIN Other details as noted in HPI Constitutional: denies: chills, fever ENT: denies: throat pain, congestion Respiratory: denies: cough, shortness of breath, wheezing Cardiovascular: denies: chest pain, palpitations, edema, syncope Gastrointestinal: denies: nausea, vomiting, hematemesis, hematochezia Genitourinary: dysuria, testicular pain (8), other. denies: urgency, frequency, hematuria, discharge, testicular mass Musculoskeletal: back pain. denies: joint swelling, arthralgia, myalgia (Dark urine) Skin: denies: rash Neurological: denies: headache, numbness, paresthesias, abnormal gait, vertigo ED Past Medical Hx - Past Medical History Previous Medical History?: Yes Hx Deep Vein Thrombosis: Yes (R leg) - Surgical History Past Surgical History?: Yes Additional Surgical History: left knee reconstruction, hernia - Family History Family history: hypertension - Social History Smoking Status: Current Some Day Smoker Substance Use Type: Alcohol - Medications Home Medications: Home Medications Medication Instructions Recorded Confirmed Last Taken Type Amoxicillin/K Clav Tab [Augmentin 1 tab PO Q12HR #10 tab 05/13/15 Unknown Rx 875 mg] Ibuprofen [Motrin 800 MG tab] 800 mg PO Q8HR PRN #30 tablet 05/13/15 Unknown Rx Triamcinolone 0.1% [Kenalog 0.1% 1 applic TP BID #1 tube 08/25/15 Unknown Rx CREAM] cephALEXin [Keflex] 500 mg PO Q6HR #40 capsule 08/25/15 Unknown Rx Clindamycin [Clindamycin CAP] 300 mg PO Q8H #21 cap 09/29/17 Unknown Rx Ibuprofen [Motrin] 600 mg PO Q8H PRN #30 tablet 09/29/17 Unknown Rx Naproxen [Naprosyn] 500 mg PO BID 14 Days #28 tablet 11/17/17 Unknown Rx Ciprofloxacin HCl [Cipro] 500 mg PO BID #14 tablet 06/26/18 Unknown Rx Dicyclomine [Bentyl] 20 mg PO QID #10 tablet 06/26/18 Unknown Rx metroNIDAZOLE [Flagyl] 500 mg PO Q12HR #14 tab 06/26/18 Unknown Rx traMADoL [Ultram] 50 mg PO Q6HR PRN #12 tablet 06/26/18 Unknown Rx Ibuprofen [Motrin 800 MG tab] 800 mg PO TID 5 Days #15 tablet 09/01/18 Unknown Rx Apixaban [Eliquis] 5 mg PO BID #62 tablet 12/01/18 Unknown Rx Apixaban [Eliquis] 5 mg PO BID #74 tablet 12/08/18 Unknown Rx Ciprofloxacin HCl [Ciprofloxacin 500 mg PO Q12HR 14 Days #28 tab 03/03/19 Unknown Rx TAB] Ondansetron [Zofran ODT TAB] 8 mg PO Q8HR PRN #12 tab.rapdis 03/03/19 Unknown Rx traMADoL [Ultram 50 MG tab] 50 mg PO Q6HR PRN #12 tablet 03/03/19 Unknown Rx ED Physical Exam - General Limitations: No Limitations General appearance: alert, in no apparent distress - Head Head exam: Present: atraumatic, normocephalic - Eye Eye exam: Present: normal appearance, PERRL, EOMI - ENT ENT exam: Present: normal exam, normal orophraynx, mucous membranes moist - Neck Neck exam: Present: normal inspection, full ROM. Absent: tenderness, lymphadenopathy - Respiratory Respiratory exam: Present: normal lung sounds bilaterally. Absent: respiratory distress, chest wall tenderness - Cardiovascular Cardiovascular Exam: Present: regular rate, normal rhythm, normal heart sounds - GI/Abdominal GI/Abdominal exam: Present: soft, normal bowel sounds. Absent: distended, tenderness, organomegaly, mass, bruit, pulsatile mass, hernia - exam: Present: normal inspection, testicular tenderness (testicular tenderness), other (no transillumination seen). Absent: urethral discharge, scrotal swelling, vertical testicular lie External exam: Present: normal external exam, other (lymphadenopathy,none). Absent: erythema, swelling, lesions, lacerations, ecchymosis, bleeding - Extremities Exam Extremities exam: Present: normal inspection, full ROM, normal capillary refill, other (No cce. + 2 pulses in all extremities, no neurovascular compromise). Absent: tenderness, pedal edema, joint swelling, calf tenderness - Back Exam Back exam: Present: normal inspection, full ROM, tenderness, CVA tenderness (R), other (ambulates without difficulties). Absent: CVA tenderness (L), muscle spasm, paraspinal tenderness, vertebral tenderness, rash noted - Expanded Back Exam Expanded Back exam: Absent: saddle anesthesia Back exam: Negative Straight Leg Raising: Left, Right - Neurological Exam Neurological exam: Present: alert, oriented X3, normal gait, other (no focal neurological deficits) - Psychiatric Psychiatric exam: Present: normal affect, normal mood - Skin Skin exam: Present: warm, dry, intact, normal color. Absent: rash ED Course Vital Signs 03/03/19 05:20 Temperature 98.1 F Pulse Rate 85 Respiratory 16 Rate Blood Pressure 140/91 Blood Pressure 140/91 [Left] O2 Sat by Pulse 96 Oximetry - Reevaluation(s) Reevaluation #1: 03/03/19 07:26 given IV fluid normal saline 1 L, Zofran 4 mg IV for nausea and Toradol 30 mg IV for pain and pain is better. 03/03/19 09:30 Testicular ultrasound stable and CT scan of the abdomen and pelvis without contrast shows right pyelonephritis and hydronephrosis questionable stone that has passed. Positive right perinephric stranding. Reevaluation #2: 03/03/19 10:26 given Percocet 5/325 2 tablets by mouth, Zofran 8 mg IV and Levaquin 750 mg by mouth to cover pain, nausea and started treatment for pyelonephritis. He is stable and in no acute distress. ED Medical Decision Making - Lab Data Result diagrams: 03/03/19 07:59 03/03/19 07:59 Lab Results 03/03/19 03/03/19 03/03/19 Range/Units 05:54 07:59 07:59 WBC 7.7 (4.5-11.0) K/mm3 RBC 5.29 H (3.65-5.03) M/mm3 Hgb 14.4 (11.8-15.2) gm/dl Hct 43.0 (35.5-45.6) % MCV 81 L (84-94) fl MCH 27 L (28-32) pg MCHC 34 (32-34) % RDW 13.5 (13.2-15.2) % Plt Count 272 (140-440) K/mm3 Lymph % (Auto) 15.3 (13.4-35.0) % [place] % (Auto) 10.3 H (0.0-7.3) % Eos % (Auto) 0.3 (0.0-4.3) % Baso % (Auto) 0.7 (0.0-1.8) % Lymph # 1.2 (1.2-5.4) K/mm3 [place] # 0.8 (0.0-0.8) K/mm3 Eos # 0.0 (0.0-0.4) K/mm3 Baso # 0.1 (0.0-0.1) K/mm3 Seg Neutrophils % 73.4 H (40.0-70.0) % Seg Neutrophils # 5.7 (1.8-7.7) K/mm3 Sodium 141 (137-145) mmol/L Potassium 4.2 (3.6-5.0) mmol/L Chloride 101.5 (98-107) mmol/L Carbon Dioxide 22 (22-30) mmol/L Anion Gap 22 mmol/L BUN 5 L (9-20) mg/dL Creatinine 0.7 L (0.8-1.5) mg/dL Estimated GFR > 60 ml/min BUN/Creatinine Ratio 7 % Glucose 103 H (75-100) mg/dL Calcium 8.5 (8.4-10.2) mg/dL Total Bilirubin 0.60 (0.1-1.2) mg/dL AST 20 (5-40) units/L ALT 20 (7-56) units/L Alkaline Phosphatase 58 (35-129) units/L Total Protein 7.0 (6.3-8.2) g/dL Albumin 3.9 (3.9-5) g/dL Albumin/Globulin Ratio 1.3 % Lipase 23 (13-60) units/L Urine Color Yellow (Yellow) Urine Turbidity Clear (Clear) Urine pH 6.0 (5.0-7.0) Ur Specific [place] 1.014 (1.003-1.030) Urine Protein <15 mg/dl (Negative) mg/dL Urine Glucose (UA) Neg (Negative) mg/dL Urine Ketones Neg (Negative) mg/dL Urine Blood Mod (Negative) Urine Nitrite Neg (Negative) Urine Bilirubin Neg (Negative) Urine Urobilinogen 2.0 (<2.0) mg/dL Ur Leukocyte Esterase Neg (Negative) Urine WBC (Auto) 3.0 (0.0-6.0) /HPF Urine RBC (Auto) 66.0 (0.0-6.0) /HPF U Epithel Cells (Auto) < 1.0 (0-13.0) /HPF Urine Bacteria (Auto) 1+ (Negative) /HPF Urine Mucus Few /HPF Urine culture pending - Radiology Data Radiology results: report reviewed Ultrasound testicular Doppler, CT scan without contrast dictated by radiology and report reviewed by myself. Please see report without Findings [address] [address] Ultrasound Report Signed Patient: KEEGAN SÁNCHEZ MR#: [id number] 5 : 1970 Acct:[id number] Age/Sex: 49 / M ADM Date: 03/03/19 Loc: ED Attending Dr: Ordering Physician: DONATO FAUSTIN Date of Service: 03/03/19 Procedure(s): US testicular doppler comp Accession Number(s): [id number] cc: DONATO FAUSTIN ULTRASOUND TESTICULAR DOPPLER COMPLETE HISTORY: Right testicular pain TECHNIQUE: Grayscale ultrasound with color and spectral Doppler imaging. FINDINGS: The right testicle measures 4.6 x 1.9 x 2.9 cm. The left testicle measures 4.2 x 2.0 x 2.8 cm. No evidence for testicular cyst, mass or calcifications. Arterial flow is identified to both testicles on spectral Doppler waveforms. The epididymides are unremarkable. No hydrocele or varicocele is identified. IMPRESSION: Unremarkable testicular ultrasound. Signer Name: Benton Rice Jr, MD Signed: 03/03/2019 8:59 AM Workstation Name: [id number] Transcribed By: TTR Dictated By: BENTON RICE JR, MD Electronically Authenticated By: BENTON RICE JR, MD Signed Date/Time: 03/03/19858 DD/ 6 TD/TT: Findings [facility] [address] [place] [address] Cat Scan Report Signed Patient: KEEGAN SÁNCHEZ MR#: [id number] 5 : 1970 Acct:[id number] Age/Sex: 49 / M ADM Date: 03/03/19 Loc: ED Attending Dr: Ordering Physician: DONATO SHANE Date of Service: 03/03/19 Procedure(s): CT abdomen pelvis wo con Accession Number(s): [id number] cc: DONATO SHANE CT ABDOMEN AND PELVIS WITHOUT CONTRAST HISTORY: kidney stones: back pain. COMPARISON: CT abdomen/pelvis from 06/26/2018 TECHNIQUE: CT images of the abdomen and pelvis were obtained without administration of intravenous contrast. All CT scans at this location are performed using CT dose reduction for ALARA by means of automated exposure control. FINDINGS: Lungs/bones: Lung bases are clear. There is no acute osseous abnormality. Mild degenerative changes are present in the spine and pelvis with no acute osseous abnormality identified. Abdomen/pelvis: There is mild right-sided hydronephrosis, perinephric stranding, and periureteral stranding which extends along the entire course of the right ureter. There is no radiopaque ureteral stone and no stone in the urinary bladder. The urinary bladder itself appears unremarkable. The left kidney is also unremarkable. The liver, gallbladder, spleen, pancreas, adrenals, and proximal GI tract appear unremarkable. The prostate is normal. No pelvic free fluid. No acute colonic abnormality identified. The appendix and terminal ileum are normal. IMPRESSION: 1. Mild right-sided hydronephrosis and inflammatory change involving the right kidney and ureter with no obstructive radiopaque stone. Findings could be seen with recent stone passage or with pyelonephritis. No bladder stone identified. Signer Name: Jerald Boudreaux MD Signed: 03/03/2019 8:37 AM Workstation Name: [id number] Transcribed By: JW Dictated By: Jerald Boudreaux MD Electronically Authenticated By: Jerald Boudreaux MD Signed Date/Time: 03/03/19836 DD/ 2 TD/TT: - Medical Decision Making Patient complains of right testicular pain ultrasound of testicles done and shows no acute findings. Complain of lower quadrant abdominal pain to suprapubic area with right flank pain and positive CVA tenderness. Also had dysuria and CT scan of the abdomen and pelvis without contrast shows patient with perinephric stranding concerning for right pyelonephritis or renal calculus that has passed. Patient denies any blood in his urine. CBC and CMP stable. Urinalysis with moderate blood and 1+ bacteria. Urine culture sent and pending. Patient received 1 L normal saline emergency room, Levaquin 750 mg by mouth to start coverage for pyelonephritis, Toradol 30 mg IV, Zofran 8 mg IV. She will receive Percocet 5/325 2 tablets by mouth and he is pain-free, vital signs stable afebrile and he said he feeling better. Patient able to tolerate oral fluids. I discussed his diagnosis treatment plan and medication within and he is to follow up with primary care physician in 2 days and he voiced understanding. Discharged home with at family prescription for ciprofloxacin, tramadol and Zofran. - Differential Diagnosis renal calculus, polynephritis, UTI, testicular abnormality,hydro vs varico Critical care attestation.: If time is entered above; I have spent that time in minutes in the direct care of this critically ill patient, excluding procedure time. ED Disposition Clinical Impression: Pyelonephritis of right kidney, Hydronephrosis, right, Rt flank pain Abdominal pain Qualifiers: Abdominal location: right lower quadrant Qualified Code(s): R10.31 - Right lower quadrant pain Disposition: DC-01 TO HOME OR SELFCARE Is pt being admited?: No Does the pt Need Aspirin: No Condition: Stable Instructions: Acute Pyelonephritis (ED), Flank Pain (ED), Hydronephrosis (ED) Additional Instructions: Please follow up with a primary care physician in 2 days. increase fluid intake to 2-3 L of water daily Take Medication as prescribed If Condition worsens to include fever, increased pain, blood in urine, chills, weakness, increase in abdominal pain, please return to the emergency room ANDREW Ultram for pain but please do not drive or operate heavy machinery while taking this medication as it causes drowsiness, taking Zofran for nausea and take ciprofloxacin for kidney infection Prescriptions: Ciprofloxacin HCl [Ciprofloxacin TAB] 500 mg PO Q12HR 14 Days #28 tab traMADoL [Ultram 50 MG tab] 50 mg PO Q6HR PRN #12 tablet PRN Reason: Pain Ondansetron [Zofran ODT TAB] 8 mg PO Q8HR PRN #12 tab.rapdis PRN Reason: Nausea And Vomiting Referrals: PRIMARY CARE, [Primary Care Provider] - 03/05/19 [facility] [Outside] - 03/05/19 Forms: Work/School Release Form(ED)
[2019-03-03 08:19] LABS: Basophils # (Auto) 0.1 K/mm3 (0.0-0.1); Basophils % (Auto) 0.7 % (0.0-1.8); Eosinophils % (Auto) 0.3 % (0.0-4.3); Hemoglobin 14.4 gm/dl (11.8-15.2); Lymphocytes # (Auto) 1.2 K/mm3 (1.2-5.4); Lymphocytes % (Auto) 15.3 % (13.4-35.0); Mean Corpuscular HGB Conc 34 % (32-34); Mean Corpuscular Volume 81 fl (84-94); Monocytes # (Auto) 0.8 K/mm3 (0.0-0.8); Monocytes % (Auto) 10.3 % (0.0-7.3); Platelet Count 272 K/mm3 (140-440); Red Blood Count 5.29 M/mm3 (3.65-5.03); Red Cell Distribution Width 13.5 % (13.2-15.2)
--- NOTE | 2019-03-03 08:42 | Cat Scan Report ---
CT ABDOMEN AND PELVIS WITHOUT CONTRAST HISTORY: kidney stones: back pain. COMPARISON: CT abdomen/pelvis from 06/26/2018 TECHNIQUE: CT images of the abdomen and pelvis were obtained without administration of intravenous co ntrast. All CT scans at this location are performed using CT dose reduction for ALARA by means of au tomated exposure control. FINDINGS: Lungs/bones: Lung bases are clear. There is no acute osseous abnormality. Mild degenerative changes are present in the spine and pelvis with no acute osseous abnormality identified. Abdomen/pelvis: There is mild right-sided hydronephrosis, perinephric stranding, and periureteral st randing which extends along the entire course of the right ureter. There is no radiopaque ureteral st one and no stone in the urinary bladder. The urinary bladder itself appears unremarkable. The left ki dney is also unremarkable. The liver, gallbladder, spleen, pancreas, adrenals, and proximal GI tract appear unremarkable. The prostate is normal. No pelvic free fluid. No acute colonic abnormality identified. The appendix a nd terminal ileum are normal. IMPRESSION: 1. Mild right-sided hydronephrosis and inflammatory change involving the right kidney and ureter with no obstructive radiopaque stone. Findings could be seen with recent stone passage or with pyelonephr itis. No bladder stone identified. Signer Name: Jerald Boudreaux MD Signed: 03/03/2019 8:37 AM Workstation Name: [id number]
[2019-03-03 08:45] LABS: Alanine Aminotransferase 20 units/L (7-56); Albumin 3.9 g/dL (3.9-5); BUN/Creatinine Ratio 7; Blood Urea Nitrogen 5 mg/dL (9-20); Calcium 8.5 mg/dL (8.4-10.2); Hemolysis Index 6
--- NOTE | 2019-03-03 09:03 | Ultrasound Report ---
ULTRASOUND TESTICULAR DOPPLER COMPLETE HISTORY: Right testicular pain TECHNIQUE: Grayscale ultrasound with color and spectral Doppler imaging. FINDINGS: The right testicle measures 4.6 x 1.9 x 2.9 cm. The left testicle measures 4.2 x 2.0 x 2.8 cm. No lina dence for testicular cyst, mass or calcifications. Arterial flow is identified to both testicles on s pectral Doppler waveforms. The epididymides are unremarkable. No hydrocele or varicocele is identified. IMPRESSION: Unremarkable testicular ultrasound. Signer Name: Benton Rice Jr, MD Signed: 03/03/2019 8:59 AM Workstation Name: [id number]
[2019-03-03] MEDS ORDERED: levoFLOXacin 750 MG TAB PO ONE (09:34)
[2019-03-03] MEDS ORDERED: oxyCODONE /ACETAMINOPHEN 5-325MG TAB PO ONE (09:34)
== END 2019-03-03 10:34 | disposition home or self-care (01) ==
LOC: ED 05:16
DX: N12 Tubulo-interstitial nephritis, not specified as acute or chronic (principal); N13.30 Unspecified hydronephrosis; F17.200 Nicotine dependence, unspecified, uncomplicated
CPT/HCPCS: 36415; 74176; 80053; 81001; 83690; 85025; 93975; 96374; 96375; 96376; 99284; J1885; J2405; J7030